=== PATIENT | female | born 1970 | race Caucasian/White ===

== ENCOUNTER 2016-10-20 09:59 | Emergency (ER) | payer SELFPAY ==
--- NOTE | 2016-10-20 10:09 | ER Document Report ---
ED Medical Screen (RME) - General Stated Complaint: RIGHT SHOULDER/ARM PAIN Notes: onset: 1 weeks ago sharp stabbing pain along right arm. 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 A comprehensive ED assessment and evaluation of the patient, analysis of test results and completion of the medical decision making process will be conducted by additional ED providers. TRAVEL OUTSIDE OF THE [place] IN LAST 30 DAYS: No - Related Data Allergies/Adverse Reactions: No Known Allergies Allergy (Verified 11/20/12 08:53) Past Medical History Psychiatric Medical History: Reports: Hx Bipolar Disorder - Immunizations Immunizations up to date: Yes Hx Diphtheria, Pertussis, Tetanus Vaccination: Yes
[2016-10-20] MEDS ORDERED: IBUPROFEN 800 MG TABLET PO ONE (10:11)
[2016-10-20] MEDS ORDERED: KETOROLAC TROMETHAMINE 60 MG/2 ML SDV IM ONE (10:55)
--- NOTE | 2016-10-20 10:55 | ER Document Report ---
HPI - HPI Patient complains to provider of: right arm back pain Onset/Duration: Gradual Quality of pain: Achy, Throbbing Severity: Severe Pain Level: 5 Context: She presents today with complaints of right upper back pain that radiates down her right arm making her hand feel tingly. She reports symptoms started approximately 3 days ago after she walked of the chest collected shells. Denies trauma Associated Symptoms: Nonproductive cough Exacerbated by: Denies Relieved by: Denies Similar symptoms previously: No Recently seen / treated by doctor: No - REPRODUCTIVE LMP: 10/10/16 Reproductive: DENIES: : - DERM Skin Color: Normal Past Medical History - General Information source: Patient Last Menstrual Period: 09/22/16 - Social History Smoking Status: Current Every Day Smoker Cigarette use (# per day): Yes Chew tobacco use (# tins/day): No Frequency of alcohol use: None Drug Abuse: None Family History: CAD, Malignancy Patient has suicidal ideation: No Patient has homicidal ideation: No Pulmonary Medical History: Reports: Other - pleurisy Renal/ Medical History: Denies: Hx Peritoneal Dialysis Psychiatric Medical History: Reports: Hx Bipolar Disorder - Immunizations Immunizations up to date: Yes Hx Diphtheria, Pertussis, Tetanus Vaccination: Yes Vertical Provider Document - CONSTITUTIONAL Agree With Documented VS: Yes Exam Limitations: No Limitations General Appearance: WD/WN, No Apparent Distress - INFECTION CONTROL TRAVEL OUTSIDE OF THE [place] IN LAST 30 DAYS: No - HEENT HEENT: Atraumatic, Normocephalic - NECK Neck: Normal Inspection, Supple. negative: Lymphadenopathy-Left, Lymphadenopathy-Right - RESPIRATORY Respiratory: Breath Sounds Normal, No Respiratory Distress, Chest Non-Tender O2 Sat by Pulse Oximetry: 100 - CARDIOVASCULAR Cardiovascular: Regular Rate, Regular Rhythm - GI/ABDOMEN Gastrointestinal: Abdomen Soft, Abdomen Non-Tender - BACK Back: Normal Inspection - No obvious deformity no swelling or erythema complains of pain to touch on her right trapezius area. Good distal movement and sensation weakness - MUSCULOSKELETAL/EXTREMETIES Musculoskeletal/Extremeties: MAEW, FROM, Non-Tender - Right arm nontender to touch full range of motion negative arch and drop test. Good radial pulse good cap refill - NEURO Level of Consciousness: Awake, Alert, Appropriate Motor/Sensory: No Motor Deficit - DERM Integumentary: Warm, Dry Adult Front & Back Diagram: 1 - c/o ttp 2 - reports entire arm aches, no pain to palpation Course - Re-evaluation Re-evalutation: 10/20/16 and EKG and chest x-ray were completed due to patient's symptoms. Both were negative. Patient was instructed on trapezius strain medication to take. She was also instructed on the importance of follow-up with a provider for recheck within one week. She verbalized understanding - Vital Signs Vital signs: Temp Pulse Resp BP Pulse Ox 98.1 F 82 17 118/71 100 10/20/16 10:05 10/20/16 10:05 10/20/16 10:05 10/20/16 10:05 10/20/16 10:05 - Diagnostic Test Radiology reviewed: Image reviewed, Reports reviewed - IMPRESSION: NO SIGNIFICANT RADIOGRAPHIC FINDING IN THE CHEST. - EKG Interpretation by [facility] EKG shows normal: Sinus rhythm Discharge - Discharge Clinical Impression: Strain of right trapezius muscle Qualifiers: Encounter type: initial encounter Qualified Code(s): S46.811A - Strain of other muscles, fascia and tendons at shoulder and upper arm level, right arm, initial encounter Condition: Stable Disposition: HOME, SELF-CARE Instructions: Oral Narcotic Medication ([facility]), Ice Packs ([facility]), Warm Packs ([facility]) , Family Physicians / Practices, Upper Back Strain ([facility]) Additional Instructions: *You have been evaluated for right arm pain, strain trapezius *Rest/Ice packs/warm packs- alternate *Follow up with orthopedics-call for an appointment *Follow up with a primary care provider for recheck within one week *Take medication as prescribed *Return to ED for worsening condition, changes, needs Prescriptions: Hydrocodone/Acetaminophen [[place] 5-325 Tablet] 1 each PO QID #15 tablet
[2016-10-20 12:14] VITALS: BP 125/73
--- NOTE | 2016-10-20 13:10 | EKG REPORT ---
SEVERITY:- NORMAL ECG - SINUS RHYTHM : Confirmed by: Edwar Mehta MD 20-Oct-2016 13:09:55
== END 2016-10-20 12:07 | disposition home or self-care (01) ==
LOC: ER 09:59
DX: S29.012A Strain of muscle and tendon of back wall of thorax, initial encounter (principal); X58.XXXA Exposure to other specified factors, initial encounter; M54.89 Other dorsalgia; M79.601 Pain in right arm; R20.2 Paresthesia of skin; R05 Cough; F17.210 Nicotine dependence, cigarettes, uncomplicated
CPT/HCPCS: 93005; 99283; 96372; 71020; 93010; J1885